=== PATIENT | female | born 1995 | race African-American/Black ===

== ENCOUNTER → 2020-10-29 09:56 | Outpatient (CLI) | payer BC, SELFPAY ==
--- NOTE | ~2020-10-29 | US_ITS ---
EXAMINATION: US transvaginal DATE: 10/29/2020 10:20 INDICATION: Left lower quadrant pain Comparison:Left lower quadrant pain TECHNIQUE: Multiple transabdominal and endovaginal sonographic images of the pelvis performed. FINDINGS: The uterus measures 6.6 x 3.7 x 4.2 cm. The endometrial complex measures 5 mm. The right ovary measures 2.7 x 1.5 x 1.6 cm and the left ovary measures 3.4 x 2 x 2.3 cm. There are b ilateral ovarian cysts measuring up to 2.5 cm bilaterally. There is no free fluid in the pelvis. There are no abnormal masses seen on either side. IMPRESSION: 1. Bilateral 2.5 cm ovarian cysts. Reviewed, dictated and finalized at location B.
== END ==
PROVIDERS: Visit Provider Nurse Practitioner
DX: R10.2 Pelvic and perineal pain (principal); N83.201 Unspecified ovarian cyst, right side; N83.202 Unspecified ovarian cyst, left side
CPT/HCPCS: 76830

== ENCOUNTER → 2020-12-24 12:50 | Outpatient (CLI) | payer BC, SELFPAY ==
--- NOTE | ~2020-12-24 | US_ITS ---
EXAMINATION: US transvaginal DATE: 12/24/2020 13:08 INDICATION: Bilateral ovarian cysts TECHNIQUE: Multiple endovaginal sonographic images of the pelvis were obtained. COMPARISON: 10/29/2020 FINDINGS: The uterus measures 7.3 x 3.7 x 4.9 cm. The endometrial complex measures 5 mm. The right ov oscar measures 5.7 x 4.2 x 3.6 cm and contains a 5.1 cm simple cyst. The left ovary measures 2.3 x 1 x 1.3 cm. There is normal vascular flow in the ovaries. There is no free fluid in the pelvis. IMPRESSION: 1. Simple cyst of the right ovary measuring up to 5.1 cm. In a reproductive age female, follow-up ult rasound in 12 months is recommended. Reviewed, dictated and finalized at location A. IMPRESSION: 1. Simple cyst of the right ovary measuring up to 5.1 cm. In a reproductive age female, follow-up ultrasound in 12 months is recommended.
== END ==
PROVIDERS: Visit Provider Obstetrics & Gynecology Gynecology
DX: N83.201 Unspecified ovarian cyst, right side (principal); N83.202 Unspecified ovarian cyst, left side
CPT/HCPCS: 76830

== ENCOUNTER → 2021-03-22 09:21 | Outpatient (CLI) | payer BC, SELFPAY ==
--- NOTE | ~2021-03-22 | US_ITS ---
EXAMINATION: US transvaginal DATE: 03/22/2021 09:57 INDICATION: Bilateral ovarian cysts. Comparison:12/24/2020 TECHNIQUE: Multiple transabdominal and endovaginal sonographic images of the pelvis performed. FINDINGS: The uterus measures 7.9 x 4.3 x 4.7 cm. The endometrial complex measures 8 mm. The right ovary measures 4.8 x 2 x 2.3 cm and the left ovary measures 4.7 x 1.6 x 4 cm. There are chris ateral ovarian cyst measuring 1.6 cm on the right and 2.3 cm on the left. Normal doppler signal in supa th ovaries. There is free fluid in the pelvis. There are no abnormal masses seen on either side. IMPRESSION: 1. Small bilateral ovarian cysts, largest in the left ovary measuring 2.3 cm. Reviewed, dictated and finalized at location A.
== END ==
PROVIDERS: Visit Provider Obstetrics & Gynecology Gynecology
DX: N83.201 Unspecified ovarian cyst, right side (principal); N83.202 Unspecified ovarian cyst, left side
CPT/HCPCS: 76830